=== PATIENT | female | born 1970 | race Caucasian/White ===

== ENCOUNTER 2018-09-24 15:04 | Emergency (ER) | payer BC ==
[2018-09-24] MEDS: METHYLPREDNISOLONE 125 MG INJ IM (16:56)
[2018-09-24] MEDS: ALBUTEROL 0.083% (NEB) 2.5 MG/3 ML AMP HHN (17:46)
[2018-09-24] MEDS: IPRATROPIUM (NEB) 0.5 MG/2.5 ML AMP HHN (17:46)
[2018-09-24] MEDS: PROMETHAZINE/CODEINE 5ML CUP PO (19:27)
== END 2018-09-24 20:43 | disposition home or self-care (01) ==
LOC: FTE 15:04
DX: J06.9 Acute upper respiratory infection, unspecified (principal); I10 Essential (primary) hypertension
CPT/HCPCS: 94664; 96372; 99284-25